=== PATIENT | female | born 1980 | race Caucasian/White ===

== ENCOUNTER 2025-08-12 20:21 | Emergency (ER) | payer OTHER ==
[~2025-08-12] VITALS: Wt 89.4 kg
[2025-08-12 20:37] LABS: BASO # 0.0 10*3/uL (0.0-0.1); BASO % 0.6 % (0.0-1.0); EOS # 0.3 10*3/uL (0.0-0.4); EOS % 4.7 % (1.0-4.0); MEAN CELL VOLUME 80.2 fl (81.0-99.0); MEAN CORPUSCULAR HGB 22.1 pg (27.0-31.0); MEAN PLATELET VOLUME 9.7 fl (9.6-12.3); MONO # 0.7 10*3/uL (0.1-1.0); MONO % 11.0 % (3.0-9.0); NEUT # 3.1 10*3/uL (2.3-7.9); NEUT % 48.4 % (47.0-73.0); NUCLEATED RED BLOOD CELL 0.0 % (0.0-0.0); NUCLEATED RED BLOOD CELL 0.0 10*3/uL (0.0-0.0); PLATELET COUNT AUTOMATED 289 10*3/uL (130-400); RED CELL DISTRI WIDTH 18.9 % (0-14.5)
[2025-08-12 21:01] LABS: BUN 9 mg/dl (9-23); SGPT/ALT 17 U/L (5-49)
[2025-08-12] MEDS ORDERED: BUMETANIDE 1 MG/4 ML VIAL IM ONE (21:25)
== END 2025-08-13 00:52 ==
LOC: ED 20:21
PROVIDERS: Internal Medicine
DX: R60.0 Localized edema (principal); D50.9 Iron deficiency anemia, unspecified; E44.1 Mild protein-calorie malnutrition; I11.0 Hypertensive heart disease with heart failure; I50.9 Heart failure, unspecified

== ENCOUNTER 2025-08-31 21:08 | Emergency (ER) | payer OTHER ==
[~2025-08-31] VITALS: Ht 152.4 cm; Wt 73.9 kg
[2025-08-31] MEDS ORDERED: BUMETANIDE 1 MG/4 ML VIAL IV ONE (21:15)
[2025-08-31 21:33] LABS: BASO # 0.0 10*3/uL (0.0-0.1); BASO % 0.7 % (0.0-1.0); EOS # 0.3 10*3/uL (0.0-0.4); EOS % 4.9 % (1.0-4.0); MEAN CELL VOLUME 76.5 fl (81.0-99.0); MEAN CORPUSCULAR HGB 22.0 pg (27.0-31.0); MEAN PLATELET VOLUME 11.4 fl (9.6-12.3); MONO # 0.6 10*3/uL (0.1-1.0); MONO % 9.4 % (3.0-9.0); NEUT # 2.7 10*3/uL (2.3-7.9); NEUT % 44.4 % (47.0-73.0); NUCLEATED RED BLOOD CELL 0.0 % (0.0-0.0); NUCLEATED RED BLOOD CELL 0.0 10*3/uL (0.0-0.0); PLATELET COUNT AUTOMATED 288 10*3/uL (130-400); RED CELL DISTRI WIDTH 20.0 % (0-14.5)
[2025-08-31 22:00] LABS: BUN 10 mg/dl (9-23)
[2025-08-31] MEDS ORDERED: POTASSIUM CHLO20 ME3 PO (22:06)
[2025-08-31] MEDS ORDERED: LASIX40 MG PO (22:06)
== END 2025-08-31 22:25 | disposition home or self-care (01) ==
LOC: ED 21:08
PROVIDERS: Internal Medicine
DX: R60.0 Localized edema (principal); D50.9 Iron deficiency anemia, unspecified; I11.0 Hypertensive heart disease with heart failure; I50.9 Heart failure, unspecified